=== PATIENT | male | born 1985 | race Caucasian/White ===

== ENCOUNTER 2018-10-06 21:21 | Emergency (ER) | payer MEDICAID ==
[~2018-10-06] VITALS: Ht 162.6 cm; Wt 84.4 kg
[2018-10-06 21:51] VITALS: Ht 162.6 cm; Wt 84.4 kg
[2018-10-06 23:41] VITALS: BP 122/80
[2018-10-07 00:08] LABS: BASOPHIL % 0.5 % (0-2); PLATELET COUNT 240 x10^3mcL (130-400); RED CELL DISTRIBUTION WIDTH 14.3 % (11.5-14.5)
[2018-10-07 00:41] LABS: URIC ACID 9.5 mg/dL (3.5-7.2)
[2018-10-07 01:31] LABS: ERYTHROCYTE SED RATE 71 mm/hr (0-15)
== END 2018-10-06 23:41 | disposition home or self-care (01) ==
LOC: ED 21:21
PROVIDERS: Emergency Medicine
DX: M10.9 Gout, unspecified (principal)
CPT/HCPCS: 36415; J1885

== ENCOUNTER 2018-11-21 05:14 | Emergency (ER) | payer MEDICAID ==
[~2018-11-21] VITALS: Ht 162.6 cm; Wt 70.3 kg
[2018-11-21 05:21] VITALS: Ht 162.6 cm; Wt 70.3 kg
[2018-11-21 08:06] VITALS: BP 127/79
== END 2018-11-21 08:06 | disposition home or self-care (01) ==
LOC: ED 05:14
DX: M10.9 Gout, unspecified (principal)
CPT/HCPCS: J1885; Q0092